=== PATIENT | female | born 1980 | race Caucasian/White ===

== ENCOUNTER 2016-07-29 12:12 | Emergency (ER) | payer OTHER ==
--- NOTE | 2016-07-29 13:42 | RAD ---
INDICATION: Chest pain COMPARISON: Chest x-ray August 18, 2012 TECHNIQUE: An AP portable view obtained at 1106 hours is submitted. FINDINGS: Bones/Soft Tissues: There are no acute bony findings. Cardiomediastinal: The cardiomediastinal silhouette is normal. Lungs: There are no infiltrates. Pleura: There are no pleural effusions. Other: None IMPRESSION: NO ACTIVE DISEASE.
--- NOTE | 2016-07-29 13:43 | RAD ---
HISTORY: Fall, pain at base of thumb COMPARISONS: None VIEWS: 2, Frontal and lateral views of the right hand FINDINGS: BONE DENSITY: Normal. BONES: There is no displaced fracture. JOINTS: There is no arthropathy. ALIGNMENT: There is no dislocation. SOFT TISSUES: Unremarkable. OTHER FINDINGS: None. IMPRESSION: NO ACUTE OSSEOUS INJURY. IF SYMPTOMS PERSIST, RECOMMEND REPEAT IMAGING.
[2016-07-29] MEDS ORDERED: Ketorolac INJ* 30 MG/ML 1 ML VIAL IV PUSH ONE (14:45)
[2016-07-29 14:57] LABS: Hematocrit 43 % (35-47); Hemoglobin 14.2 g/dl (12.0-16.0); Mean Corpuscular HGB Conc 33 g/dl (31-36); Mean Corpuscular Hemoglobin 30 pg (27-31); Mean Corpuscular Volume 90 fL (80-97); Mean Platelet Volume 8 um3 (7.4-10.4); Red Blood Count 4.81 10^6/ul (4.0-5.4); Red Cell Distribution Width 13 % (10.5-15); White Blood Count 12.9 10^3/ul (3.5-10.8)
[2016-07-29 15:37] LABS: BUN/Creatinine Ratio 6.5 (8-20); Calcium 9.3 mg/dL (8.6-10.3); EGFR African American 109.1 (>60); EGFR Non-African American 84.8 (>60); Globulin 2.7 g/dL (2-4); Potassium 3.9 mmol/L (3.5-5.0); Total Bilirubin 0.5 mg/dL (0.2-1.0); Total Protein 6.7 g/dL (6.4-8.9)
--- NOTE | 2016-07-29 15:51 | ED ---
Ronald Meeks Billy, scribed for Jamshid Osorio MD on 07/29/16 at 1231 . Upper Extremity Pain - HPI Summary HPI Summary: Patient is a 35 year-old female coming to the ED presenting with a sudden onset of constant right wrist pain after a fall earlier today at 1045. She states that the fall was caused by intermittent dizzy spells today. Her pain severity at this time is 8/10, and is worse with any touch or movement. It radiates up the right forearm. PMHx is significant for chronic DVT in the LLE, but she states she does not take any bloodthinners at this time. - History of Current Complaint Chief Complaint: EDExtremityUpper Stated Complaint: RIGHT WRIST PAIN Time Seen by Provider: 07/29/16 12:22 Hx Obtained From: Patient Hx Last Menstrual Period: depo shots - no periods Mechanism Of Injury: Fall From A Standing Position Onset/Duration: Started Hours Ago Timing: Constant Severity Initially: Moderate Severity Currently: Moderate Pain Location: Wrist Aggravating Factor(s): Movement, Other - touch Alleviating Factor(s): Nothing Associated Signs & Symptoms: Positive: Other - dizziness - Allergies/Home Medications Allergies/Adverse Reactions: Allergies Allergy/AdvReac Type Severity Reaction Status Date / Time Codeine Allergy Severe Rash Verified 11/10/15 14:18 Penicillins Allergy Severe Difficulty Verified 11/10/15 14:18 Breathing PMH/Surg Hx/FS Hx/Imm Hx Endocrine/Hematology History: Denies: Hx Diabetes, Hx Systemic Lupus Erythematosus, Hx Thyroid Disease Cardiovascular History: Denies: Hx Congestive Heart Failure, Hx Hypertension, Other Cardiovascular Problems/Disorders Respiratory History: Denies: Hx Asthma, Hx Chronic Obstructive Pulmonary Disease (COPD) Comment Only: Other Respiratory Problems/Disorders - sob GI History: Denies: Hx Ulcer, Other GI Disorders History: Denies: Hx Dialysis, Hx Renal Disease Musculoskeletal History: Denies: Hx Rheumatoid Arthritis Neurological History: Reports: Hx Headaches - MIGRAINES - Cancer History Hx Chemotherapy: No - Surgical History Surgery Procedure, Year, and Place: right foot surgery Infectious Disease History: No Infectious Disease History: Denies: Hx Clostridium Difficile, Hx Hepatitis, Hx Human Immunodeficiency Virus (HIV), Hx of Known/Suspected MRSA, Hx Shingles, Hx Tuberculosis, History Other Infectious Disease, Traveled Outside the [place] in Last 30 Days - Family History Known Family History: Positive: Cardiac Disease, Hypertension, Other - Grandmother with pancreatic and breast cancer. - Social History Alcohol Use: None Substance Use Type: Reports: Marijuana Smoking Status (MU): Heavy Every Day Tobacco Smoker Type: Cigarettes Length of Time of Smoking/Using Tobacco: 1/2 ppd up to a full pack Review of Systems Positive: Other - right wrist pain Neurological: Other - dizziness All Other Systems Reviewed And Are Negative: Yes Physical Exam - Summary Physical Exam Summary: VITAL SIGNS: Reviewed. GENERAL: Patient is a well developed and nourished female who is lying comfortable in the stretcher. Patient is not in any acute respiratory distress. HEAD AND FACE: No signs of trauma. No ecchymosis, hematomas or skull depressions. No sinus tenderness. EYES: PERRLA, EOMI x 2, No injected conjunctiva, no nystagmus. EARS: Hearing grossly intact. Ear canals and tympanic membranes are within normal limits. MOUTH: Oropharynx within normal limits. NECK: Supple, trachea is midline, no adenopathy, no JVD, no carotid bruit, no c- spine tenderness, neck with full ROM. CHEST: Symmetric, no tenderness at palpation LUNGS: Clear to auscultation bilaterally. No wheezing or crackles. CVS: Regular rate and rhythm, S1 and S2 present, no murmurs or gallops appreciated. ABDOMEN: Soft, non-tender. No signs of distention. No rebound no guarding, and no masses palpated. Bowel sounds are normal. EXTREMITIES: FROM in all major joints, no edema, no cyanosis or clubbing. Right hand and wrist w/o deformity, ecchymosis, swelling. Decreased ROM secondary to pain. NEURO: Alert and oriented x 3. No acute neurological deficits. Speech is normal and follows commands. SKIN: Dry and warm Triage Information Reviewed: Yes Vital Signs On Initial Exam: Initial Vitals Temp Pulse Resp BP Pulse Ox 99.2 F 89 18 127/81 100 07/29/16 12:14 07/29/16 12:14 07/29/16 12:14 07/29/16 12:14 07/29/16 12:14 Vital Signs Reviewed: Yes Diagnostics - Vital Signs Vital Signs Temp Pulse Resp BP Pulse Ox 07/29/16 12:14 99.2 F 89 18 127/81 100 - Laboratory Result Diagrams: 07/29/16 14:39 07/29/16 14:39 Lab Statement: Any lab studies that have been ordered have been reviewed, and results considered in the medical decision making process. - Radiology CXR Xray Interpretation: No Acute Changes Radiology Interpretation Completed By: Radiologist R Hand XRay Xray Interpretation: No Acute Changes Radiology Interpretation Completed By: Radiologist R Forearm XRay Xray Interpretation: No Acute Changes Radiology Interpretation Completed By: Radiologist - EKG 1302 EKG Interpretation: NSR 71 bpm, no ST elevations. Re-Evaluation - Re-Evaluation First Eval Re-Evaluation Time: 15:50 Change: Improved Course/Dx - Course Assessment/Plan: Patient is a 35 year-old female coming to the ED presenting with a sudden onset of constant right wrist pain after a fall earlier today at 1045. She states that the fall was caused by intermittent dizzy spells today. Her pain severity at this time is 8/10, and is worse with any touch or movement. It radiates up the right forearm. PMHx is significant for chronic DVT in the LLE, but she states she does not take any blood thinners at this time. Patient chooses not to take any blood thinners at this time since she reports she gets severe menstrual cycle. She reports she is waiting to take a Depo Shot at the end of the month and she will think on taking blood thinners. Hand, Wrist and Forearm X ray impression: no acute osseous injury. CXR impression: No acute disease. Blood work wnl. In the Ed course she was given toradol for pain. I discussed all my findings and test results with the patient. Patient understands and agrees. Patient was instructed to return to the emergency room immediately if any of the symptoms return or worsens. Patient understands and agrees. Plan of care was discussed with the patient and patient understands and agrees with the plan of care. All questions were answered at patient satisfaction. There were no further complaints or concerns. Patient was instructed to follow up with primary care physician within 3 to 5 days. Patient is hemodynamically stable. Patient is alert and oriented x 3. No acute neurological deficits - Diagnoses Differential Diagnosis/HQI/PQRI: Positive: Arthritis, Contusion, Fracture ( Closed), Hematoma, Strain, Sprain. Negative: Fracture (Open) Provider Diagnoses: Accidental fall, Wrist pain, acute, Dizziness Discharge - Discharge Plan Condition: Stable Disposition: HOME Patient Education Materials: Wrist Injury (ED), Dizziness (ED) Referrals: [facility] [place] PHYSICIAN REFERRAL [Outside] The documentation as recorded by the Ronald sewell Billy accurately reflects the service I personally performed and the decisions made by me, Jamshid Osorio MD.
[2016-07-29 16:05] VITALS: BP 117/58
--- NOTE | 2016-08-03 22:27 | RAD ---
Indication: Pain post fall. Comparison: None. Technique: AP and lateral views RIGHT radius and ulna. Report: Negative for fracture or malalignment. Unremarkable soft tissue contours. IMPRESSION: Negative exam.
== END 2016-07-29 16:12 | disposition home or self-care (01) ==
LOC: ED 12:12
DX: M25.531 Pain in right wrist (principal); R42 Dizziness and giddiness
CPT/HCPCS: 36415; 71010; 80053; 82553; 83605; 83880; 84484; 85025; 93005; 96374; 99283; J1885

== ENCOUNTER 2016-11-12 11:49 | Emergency (ER) | payer OTHER ==
[2016-11-12 12:15] VITALS: BP 136/81
[2016-11-12] MEDS ORDERED: Ondansetron ODT TAB* 4 MG PO ONE (12:59)
--- NOTE | 2016-11-12 13:11 | UC ---
Abdominal Pain Female HPI - HPI Summary HPI Summary: Pt is worried about her rash and a potential "bacterial infection because I have really bad lymphedema." 1) small red dots on abdomen and back the sometimes itch, sometimes are sore, have "bubbles like chicken pox" x 1 month. Was told at [facility] to get seen for this. 2) vomited 7 times this morning, diarrhea starting 2 days ago approx 3 times per day, watery and orange. 3) LUQ abdominal pain since 2007 that comes 3-12 times per month, feels like a "punch in the gut" and lasts an hour or so. Has apt for endoscopy 11/24/16. 4) has fevers, mostly above 101F, 4 days out of 7, usually in the evening or first thing in the morning. Drenching sweats. 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 - History of Current Complaint Chief Complaint: UCRash Stated Complaint: RASH Time Seen by Provider: 11/12/16 12:18 Hx Obtained From: Patient Hx Last Menstrual Period: depo ?: No Onset/Duration: Lasting Weeks Timing: Constant Severity Initially: Mild Severity Currently: Mild Location: Discrete At: LUQ Radiates: Yes Radiates to: Back Character: Cramping, Dull Aggravating Factor(s): Food, Deep Breaths, Other: - medications Associated Signs and Symptoms: Positive: Fever, Nausea, Vomiting, Diarrhea. Negative: Blood in Stool, Urinary Symptoms, Vaginal Bleeding Allergies/Adverse Reactions: Allergies Allergy/AdvReac Type Severity Reaction Status Date / Time Codeine Allergy Severe Rash Verified 11/12/16 12:15 Penicillins Allergy Severe Difficulty Verified 11/12/16 12:15 Breathing Home Medications: Home Medications Diazepam [Valium] 2 mg PO 11/12/16 [History] PMH/Surg Hx/FS Hx/Imm Hx Previously Healthy: No Endocrine History Of: Denies: Diabetes, Thyroid Disease Cardiovascular History Of: Denies: Cardiac Disorders, Hypertension, Congestive Heart Failure Respiratory History Of: Denies: COPD, Asthma GI/ History Of: Denies: Ulcer, Renal Disease Other History Of: Anticoagulant Therapy - has unknown clotting d/o, lymphedema - Surgical History Surgical History: Yes Surgery Procedure, Year, and Place: right foot surgery - Family History Known Family History: Positive: Cardiac Disease, Hypertension, Other - Grandmother with pancreatic and breast cancer. - Social History Alcohol Use: None Substance Use Type: Marijuana Smoking Status (MU): Heavy Every Day Tobacco Smoker Type: Cigarettes Length of Time of Smoking/Using Tobacco: 1/2 ppd up to a full pack Cessation Counseling: Patient Advised to Stop Review of Systems Constitutional: Fever, Chills, Fatigue Skin: Rash Eyes: Negative ENT: Negative Respiratory: Negative Cardiovascular: Negative Gastrointestinal: Vomiting, Diarrhea Genitourinary: Negative Motor: Negative Neurovascular: Negative Musculoskeletal: Calf Tenderness - chronic LLE Neurological: Negative Psychological: Negative All Other Systems Reviewed And Are Negative: Yes Physical Exam Triage Information Reviewed: Yes Appearance: Well-Appearing, No Pain Distress, Well-Nourished Vital Signs: Initial Vital Signs Temp 99.0 F 11/12/16 12:08 Pulse 98 11/12/16 12:08 Resp 20 11/12/16 12:08 BP 136/81 11/12/16 12:08 Pulse Ox 98 11/12/16 12:08 Vital Signs Reviewed: Yes Eye Exam: Normal Eyes: Positive: Conjunctiva Clear ENT Exam: Normal ENT: Positive: Normal ENT inspection, Hearing grossly normal, Pharynx normal, TMs normal Neck exam: Normal Neck: Positive: Supple, Nontender, No Lymphadenopathy Respiratory Exam: Normal Respiratory: Positive: Chest non-tender, Lungs clear, Normal breath sounds, No respiratory distress, No accessory muscle use Cardiovascular: Positive: No Murmur, Tachycardia - high 90s Abdomen Description: Positive: Soft. Negative: Nontender - mild tenderness LUQ , CVA Tenderness (R), CVA Tenderness (L) Musculoskeletal Exam: Normal Neurological Exam: Normal Neurological: Positive: Alert Psychological Exam: Normal Skin Exam: Other - few scattered tiny red pustules on abd back in various stages of healing Abd Pain Female Course/Dx - Course Course Of Treatment: discussed need for ongoing primary care to make sure her fevers, vomiting, and occ abdominal pain do not have serious underlying cause. Because we are simply urgent care, and because she has a PCP (and her symptoms have been going on so long already), we will not be addressing these concerns today. Vital signs and exam are all normal/reassuring. - Differential Dx/Diagnosis Provider Diagnoses: folliculitis. acute gastroenteritis Discharge - Discharge Plan Condition: Stable Disposition: HOME Prescriptions: Ondansetron TAB* [Zofran 4 MG Tab*] 4 mg PO Q6H PRN #10 tab PRN Reason: Nausea Patient Education Materials: Folliculitis (ED), Gastroenteritis (ED) Additional Instructions: As we discussed, you need to see your primary care provider about your concerns as soon as possible. It will probably take several visits and some different testing to start to rule out serious problems (or find a diagnosis).
== END 2016-11-12 13:43 | disposition home or self-care (01) ==
LOC: UCEAST 11:49
DX: L73.9 Follicular disorder, unspecified (principal); K52.9 Noninfective gastroenteritis and colitis, unspecified; Z88.5 Allergy status to narcotic agent; Z88.0 Allergy status to penicillin; F17.210 Nicotine dependence, cigarettes, uncomplicated
CPT/HCPCS: 99212; A9270-GY; G0463

== ENCOUNTER 2017-06-25 16:29 | Emergency (ER) | payer OTHER ==
[2017-06-25 16:37] VITALS: BP 139/86
[2017-06-25] MEDS ORDERED: Acyclovir* 200 MG CAP PO ONE (17:02)
--- NOTE | 2017-06-25 17:12 | UC ---
Skin Complaint HPI - HPI Summary HPI Summary: right posterior neck pain and rash mild itch painful right occipital lump no f/c about 2 days of symptoms - History of Current Complaint Chief Complaint: UCSkin Time Seen by Provider: 06/25/17 16:40 Stated Complaint: MASS ON HEAD Hx Obtained From: Patient Hx Last Menstrual Period: one year ago Onset/Duration: Gradual Onset, Lasting Days Onset Severity: Mild Current Severity: Moderate Pain Intensity: 4 Pain Scale Used: 0-10 Numeric Character: Swelling, Redness, Raised, Painful Aggravating Factor(s): Touch Alleviating Factor(s): Nothing Associated Signs & Symptoms: Positive: Rash - Allergy/Home Medications Allergies/Adverse Reactions: Allergies Allergy/AdvReac Type Severity Reaction Status Date / Time Codeine Allergy Severe Rash Verified 06/25/17 16:37 Penicillins Allergy Severe Difficulty Verified 06/25/17 16:37 Breathing Adhesive Tape Allergy Rash Verified 06/25/17 16:37 Latex Allergy Rash Verified 06/25/17 16:37 Home Medications: Home Medications Pantoprazole Sodium [Protonix] 40 mg PO DAILY 06/25/17 [History Confirmed ] Review of Systems Constitutional: Negative Skin: Rash Eyes: Negative ENT: Negative Respiratory: Negative Cardiovascular: Negative Gastrointestinal: Negative Genitourinary: Negative Motor: Negative Neurovascular: Negative Musculoskeletal: Myalgia Neurological: Negative Psychological: Negative Is Patient Immunocompromised?: No All Other Systems Reviewed And Are Negative: Yes PMH/Surg Hx/FS Hx/Imm Hx Previously Healthy: Yes Cardiovascular History: Deep Vein Thrombosis Other History Of: Anticoagulant Therapy - has unknown clotting d/o, lymphedema - Surgical History Surgical History: Yes Surgery Procedure, Year, and Place: right foot surgery [address] [facility] [place] - Family History Known Family History: Positive: Cardiac Disease, Hypertension, Other - Grandmother with pancreatic and breast cancer. - Social History Alcohol Use: None Substance Use Type: Marijuana Smoking Status (MU): Heavy Every Day Tobacco Smoker Type: Cigarettes Length of Time of Smoking/Using Tobacco: 1/2 ppd up to a full pack Physical Exam Triage Information Reviewed: Yes Appearance: Well-Appearing, No Pain Distress, Well-Nourished Vital Signs: Initial Vital Signs Temp 97.3 F 06/25/17 16:33 Pulse 106 06/25/17 16:33 Resp 12 06/25/17 16:33 BP 139/86 06/25/17 16:33 Pulse Ox 100 06/25/17 16:33 Vital Signs Reviewed: Yes Eyes: Positive: Conjunctiva Clear ENT: Positive: Hearing grossly normal, TMs normal. Negative: Nasal congestion, Nasal drainage, Trismus, Muffled voice, Hoarse voice Neck: Positive: Supple, Nontender, Other: - right occipital LN Respiratory: Positive: Lungs clear, Normal breath sounds, No respiratory distress Cardiovascular: Positive: RRR, No Murmur Neurological: Positive: Alert Psychological Exam: Normal Skin Exam: Other - vesicles - see image Course/Dx - Diagnoses Provider Diagnoses: shingles Discharge - Discharge Plan Condition: Stable Disposition: HOME Prescriptions: Famciclovir(NF) [Famvir(NF)] 500 mg PO TID #21 tab Patient Education Materials: Marco Antonio (ED) Referrals: Iwona Wakefield MD [Primary Care Provider] - 5 Days Images Head: 1 - scatterred crops of vesicle 2 - swollen/tender LN
== END 2017-06-25 17:07 | disposition home or self-care (01) ==
LOC: UCEAST 16:29
DX: B02.9 Zoster without complications (principal); Z86.718 Personal history of other venous thrombosis and embolism; Z79.01 Long term (current) use of anticoagulants; Z91.040 Latex allergy status; Z88.5 Allergy status to narcotic agent; Z88.0 Allergy status to penicillin; Z91.048 Other nonmedicinal substance allergy status; F17.210 Nicotine dependence, cigarettes, uncomplicated
CPT/HCPCS: 99212; A9270-GY; G0463

== ENCOUNTER 2017-08-31 12:05 | Emergency (ER) | payer OTHER ==
--- NOTE | 2017-08-31 13:39 | RAD ---
HISTORY: Leg pain and edema COMPARISONS: November 19, 2015 TECHNIQUE: Multiple transverse and longitudinal ultrasound images were obtained of the bilateral lower extremities from the level of the common femoral vein inferiorly through to the infrapopliteal veins using grayscale, color Doppler, and spectral Doppler imaging with and without compression and with augmentation. FINDINGS: VEINS: Again noted is chronic nonocclusive thrombus of the left common femoral vein. The similar to the previous examination. The remainder of the venous system of the bilateral lower extremities is compressible throughout its course, with normal flow on color Doppler imaging and normal response to augmentation on spectral Doppler imaging. SOFT TISSUES: Unremarkable. OTHER FINDINGS: None. IMPRESSION: 1. NO RIGHT LOWER EXTREMITY DEEP VEIN THROMBOSIS. 2. AGAIN NOTED IS CHRONIC NONOCCLUSIVE THROMBUS OF THE LEFT COMMON FEMORAL VEIN.
[2017-08-31 13:55] VITALS: BP 137/67
[2017-08-31 14:10] LABS: ABS Basophils 0.1 10^3/ul (0-0.2); ABS Eosinophils 0.1 10^3/ul (0-0.6); ABS Lymphocytes 2.8 10^3/ul (1.0-4.8); ABS Monocytes 0.5 10^3/ul (0-0.8); ABS Neutrophils 7.6 10^3/ul (1.5-7.7); ABS Nucleated RBC 0 10^3/ul; Eosinophil % 0.8 % (0-6); Hematocrit 43 % (35-47); Hemoglobin 14.5 g/dl (12.0-16.0); Lymphocyte % 25.1 % (25-47); Mean Corpuscular HGB Conc 34 g/dl (31-36); Mean Corpuscular Hemoglobin 31 pg (27-31); Mean Corpuscular Volume 92 fL (80-97); Mean Platelet Volume 8 um3 (7.4-10.4); Nucleated Red Blood Cells % 0; Platelet Count 275 10^3/ul (150-450); Red Blood Count 4.69 10^6/ul (4.0-5.4); Red Cell Distribution Width 14 % (10.5-15); White Blood Count 11.1 10^3/ul (3.5-10.8)
[2017-08-31 14:18] LABS: INR 0.98 (0.77-1.02)
[2017-08-31 14:34] LABS: EGFR Non-African American 78.4 (>60)
--- NOTE | 2017-08-31 16:19 | ED ---
Lower Extremity - HPI Summary HPI Summary: 36 female presents to ED with complaints of left lower extremity pain, swelling and cold feeling that has been ongoing and worsening over the past few weeks. 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 Lately her left leg has increased in pain especially with walking. Sometimes increased swelling and foot becomes colder. Denies any changes to skin color. No other complaints. No PMHx other than known DVT. Patient has already been seen by vascular specialist and has another appointment on Monday, also follows with Dr Cottrell. Denies numbness/tingling. Does use cigarettes. Also concerned for right leg DVT although she thinks the pain is just from compensating. - History of Current Complaint Chief Complaint: EDExtremityLower Stated Complaint: LEG PAIN Time Seen by Provider: 08/31/17 15:19 Hx Obtained From: Patient Hx Last Menstrual Period: one year ago Mechanism Of Injury: Other - none Onset/Duration: Weeks Severity Initially: Mild Severity Currently: Moderate Pain Intensity: 8 Pain Scale Used: 0-10 Numeric Timing: Intermittent Location: Is Discrete @ - left leg calf and knee Character Of Pain: Aching Associated Signs And Symptoms: Positive: Swelling, Knee Pain - L Aggravating Factor(s): Ambulation Alleviating Factor(s): Rest Able to Bear Weight: Yes - Allergies/Home Medications Allergies/Adverse Reactions: Allergies Allergy/AdvReac Type Severity Reaction Status Date / Time MS Codeine [Codeine] Allergy Severe Rash Verified 06/25/17 16:37 MS Penicillins [Penicillins] Allergy Severe Difficulty Verified 06/25/17 16:37 Breathing Adhesive Tape Allergy Rash Verified 06/25/17 16:37 MS Latex [Latex] Allergy Rash Verified 06/25/17 16:37 PMH/Surg Hx/FS Hx/Imm Hx Endocrine/Hematology History: Reports: Hx Coagulopothy - and inguinal lymphadenopathy Denies: Hx Diabetes, Hx Systemic Lupus Erythematosus, Hx Thyroid Disease Cardiovascular History: Denies: Hx Congestive Heart Failure, Hx Hypercholesterolemia, Hx Hypertension , Hx Pacemaker/ICD, Other Cardiovascular Problems/Disorders Respiratory History: Denies: Hx Asthma, Hx Chronic Obstructive Pulmonary Disease (COPD) Comment Only: Other Respiratory Problems/Disorders - sob GI History: Denies: Hx Ulcer, Other GI Disorders History: Denies: Hx Dialysis, Hx Renal Disease Musculoskeletal History: Denies: Hx Rheumatoid Arthritis Sensory History: Denies: Hx Hearing Aid Neurological History: Reports: Hx Headaches - MIGRAINES Psychiatric History: Reports: Hx Panic Disorder - Cancer History Hx Chemotherapy: No - Surgical History Surgery Procedure, Year, and Place: right foot surgery 1991 [facility] [place] - Immunization History Immunizations Up to Date: Yes Infectious Disease History: No Infectious Disease History: Denies: Hx Clostridium Difficile, Hx Hepatitis, Hx Human Immunodeficiency Virus (HIV), Hx of Known/Suspected MRSA, Hx Shingles, Hx Tuberculosis, History Other Infectious Disease, Traveled Outside the [place] in Last 30 Days - Family History Known Family History: Positive: Cardiac Disease, Hypertension, Other - Grandmother with pancreatic and breast cancer. - Social History Alcohol Use: None Substance Use Type: Reports: Marijuana Smoking Status (MU): Heavy Every Day Tobacco Smoker Type: Cigarettes Length of Time of Smoking/Using Tobacco: 1/2 ppd up to a full pack Review of Systems Constitutional: Negative Cardiovascular: Negative Respiratory: Negative Positive: Arthralgia, Myalgia, Edema - "Cold" Skin: Negative All Other Systems Reviewed And Are Negative: Yes Physical Exam Triage Information Reviewed: Yes Vital Signs On Initial Exam: Initial Vitals Temp Pulse Resp BP Pulse Ox 98.9 F 87 17 122/76 100 08/31/17 12:11 08/31/17 12:11 08/31/17 12:11 08/31/17 12:11 08/31/17 12:11 Vital Signs Reviewed: Yes Appearance: Positive: Well-Appearing, No Pain Distress, Well-Nourished Skin: Positive: Warm, Skin Color Reflects Adequate Perfusion, Dry, Cold - Left foot and lower leg of LLE colder to touch than right, Soft, Other - no ulcerations or changes to skin color, no current edema on examination. Negative : Numb, Pale, Erythema @ Head/Face: Positive: Normal Head/Face Inspection Eyes: Positive: Conjunctiva Clear ENT: Positive: Hearing grossly normal Neck: Positive: Supple Respiratory/Lung Sounds: Positive: Clear to Auscultation, Breath Sounds Present. Negative: Rales, Rhonchi, Wheezes Cardiovascular: Positive: Normal, RRR, Pulses are Symmetrical in both Upper and Lower Extremities - dimished pulse left lower pedal, however posterior tibilas of Left +2. +1 pedal right +2 posterior tibalis right. also detected with ultrasound, Other - cap refill < 2 second lower legs b/l. Negative: Murmur, Rub Musculoskeletal: Positive: Normal, Strength/ROM Intact, Pain @ - left knee and calf. Negative: Interruption @, Edema Left, Edema Right - not appreciated Neurological: Positive: Normal, Sensory/Motor Intact, Alert, Oriented to Person Place, Time, NV Bundle Intact Distally, Normal Gait Diagnostics - Vital Signs Vital Signs Temp Pulse Resp BP Pulse Ox 08/31/17 13:53 98.2 F 18 18 137/67 100 08/31/17 12:11 98.9 F 87 17 122/76 100 - Laboratory Lab Results: Lab Results 08/31/17 08/31/17 08/31/17 Range/Units 13:55 13:55 13:55 WBC 11.1 H (3.5-10.8) 10^3/ul RBC 4.69 (4.0-5.4) 10^6/ul Hgb 14.5 (12.0-16.0) g/dl Hct 43 (35-47) % MCV 92 (80-97) fL MCH 31 (27-31) pg MCHC 34 (31-36) g/dl RDW 14 (10.5-15) % Plt Count 275 (150-450) 10^3/ul MPV 8 (7.4-10.4) um3 Neut % (Auto) 68.4 (38-83) % Lymph % (Auto) 25.1 (25-47) % [place] % (Auto) 4.8 (1-9) % Eos % (Auto) 0.8 (0-6) % Baso % (Auto) 0.9 (0-2) % Absolute Neuts (auto) 7.6 (1.5-7.7) 10^3/ul Absolute Lymphs (auto) 2.8 (1.0-4.8) 10^3/ul Absolute Monos (auto) 0.5 (0-0.8) 10^3/ul Absolute Eos (auto) 0.1 (0-0.6) 10^3/ul Absolute Basos (auto) 0.1 (0-0.2) 10^3/ul Absolute Nucleated RBC 0 10^3/ul Nucleated RBC % 0 INR (Anticoag Therapy) 0.98 (0.77-1.02) Sodium 137 (133-145) mmol/L Potassium 4.0 (3.5-5.0) mmol/L Chloride 107 (101-111) mmol/L Carbon Dioxide 25 (22-32) mmol/L Anion Gap 5 (2-11) mmol/L BUN 5 L (6-24) mg/dL Creatinine 0.82 (0.51-0.95) mg/dL Est GFR ( Amer) 100.9 (>60) Est GFR (Non-Af Amer) 78.4 (>60) BUN/Creatinine Ratio 6.1 L (8-20) Glucose 93 (70-100) mg/dL Calcium 9.2 (8.6-10.3) mg/dL Total Bilirubin 0.50 (0.2-1.0) mg/dL AST 12 L (13-39) U/L ALT 9 (7-52) U/L Alkaline Phosphatase 66 (34-104) U/L Total Protein 6.9 (6.4-8.9) g/dL Albumin 4.3 (3.2-5.2) g/dL Globulin 2.6 (2-4) g/dL Albumin/Globulin Ratio 1.7 (1-3) Result Diagrams: 08/31/17 13:55 08/31/17 13:55 Lab Statement: Any lab studies that have been ordered have been reviewed, and results considered in the medical decision making process. - Ultrasound No standard instances Ultrasound Interpretation: No Acute Changes - 1. NO RIGHT LOWER EXTREMITY DEEP VEIN THROMBOSIS. 2. AGAIN NOTED IS CHRONIC NONOCCLUSIVE THROMBUS OF THE LEFT COMMON FEMORAL VEIN. Ultrasound Interpretation Completed By: Radiologist Lower Extremity Course/Dx - Course Course Of Treatment: given pain management and muscle relaxer as patient states pain does sometimes begin in lower left back/gluteal region. possible muscle strain/inflammation. US obtained of both lower extremities and negative other than chornic known DVT of left femoral vein and nonocculsive. patient does have lower leg pulses however due to complaints, history and cold, intermittently edematous and painful left LE, recommend close follow up with vasular surgeon, has appointment on Monday, also referred to [facility]. No other concerning signs/symptoms at this time. Aware of worsening signs and symptoms to watch out for. pain management rest, elevation, heating pads/warm baths. Follow up. - Diagnoses Differential Diagnosis/HQI/PQRI: Positive: DVT, Strain, Other - vascular complication, left leg pain, PVD/PAD Provider Diagnoses: Left leg pain, Vascular complication Discharge - Discharge Plan Condition: Stable Disposition: HOME Prescriptions: Methocarbamol TAB* [Robaxin 500 MG TAB*] 500 mg PO TID PRN #20 tab PRN Reason: Spasms traMADol TAB* [Ultram*] 50 mg PO Q12H PRN #10 tab MDD 2 PRN Reason: Pain Patient Education Materials: Peripheral Vascular Disease (ED), Leg Pain (ED) Referrals: Karl Cueva MD [Primary Care Provider] - Bárbara Barrera MD [Medical Doctor] - Additional Instructions: Continue taking pain medication as directed. Increase fluid intake. Be sure to exercise your lower left extremity and foot to help assist blood flow. Heating pads and warm baths for optimal blood flow and increase in circulation. This also may be a complication of nonocclusive chronic DVT. Please return immediately if any new or worsening symptoms as we discussed. Follow up with PCP and vascular surgery, along with your scheduled appointment on Monday.
[2017-08-31] MEDS: Ketorolac INJ* 30 MG/ML 1 ML VIAL IM ONE (16:45)
== END 2017-08-31 17:02 | disposition home or self-care (01) ==
LOC: ED 12:05
DX: M79.662 Pain in left lower leg (principal); I82.512 Chronic embolism and thrombosis of left femoral vein; Z79.01 Long term (current) use of anticoagulants; F17.210 Nicotine dependence, cigarettes, uncomplicated; Z88.5 Allergy status to narcotic agent; Z88.0 Allergy status to penicillin
CPT/HCPCS: 36415; 80053; 85025; 85610; 93970; 96372; 99282; J1885

== ENCOUNTER 2017-10-27 16:44 | Emergency (ER) | payer OTHER ==
[2017-10-27 17:00] VITALS: BP 118/74
[2017-10-27] MEDS ORDERED: Albuterol/Ipratropium NEB.SOL* Albuterol 2.5 MG/Ipratropium 0.5 MG 3 ML INH ONE (17:28)
--- NOTE | 2017-10-27 17:28 | UC ---
Respiratory Complaint HPI - HPI Summary HPI Summary: Patient is beginning day 3 of chest congestion fever body aches headaches arthralgias myalgias sore throat earache nasal drainage. Patient reports her mother has had upper respiratory infection for the past couple weeks. Reports her grandchild has had fevers - History of Current Complaint Chief Complaint: UCGeneralIllness Stated Complaint: CHEST CONGESTION, NAUSEA Time Seen by Provider: 10/27/17 17:14 Hx Obtained From: Patient Hx Last Menstrual Period: one year ago ?: No Onset/Duration: Sudden Onset, Lasting Days - 2, Still Present Timing: Constant Severity Initially: Moderate Severity Currently: Moderate Pain Intensity: 6 Pain Scale Used: 0-10 Numeric Character: Cough: Productive Associated Signs And Symptoms: Positive: Pleuritic Chest Pain, URI, Nasal Congestion, Sinus Discomfort - Allergies/Home Medications Allergies/Adverse Reactions: Allergies Allergy/AdvReac Type Severity Reaction Status Date / Time codeine Allergy Rash Verified 10/27/17 17:01 Latex, Natural Rubber Allergy Rash Verified 10/27/17 17:01 Penicillins Allergy Rash Verified 10/27/17 17:01 PMH/Surg Hx/FS Hx/Imm Hx Previously Healthy: No - patient has a chronic DVT in her left leg with lymphedema - Surgical History Surgical History: Yes Surgery Procedure, Year, and Place: right foot surgery 1991 [facility] [place] - Family History Known Family History: Positive: Cardiac Disease, Hypertension, Other - Grandmother with pancreatic and breast cancer. - Social History Occupation: Disabled Lives: With Family Alcohol Use: None Substance Use Type: Marijuana Smoking Status (MU): Heavy Every Day Tobacco Smoker Type: Cigarettes Length of Time of Smoking/Using Tobacco: 1/2 ppd up to a full pack Cessation Counseling: Counseled 3+Min - 10 Min Review of Systems Constitutional: Fever, Chills, Fatigue Skin: Negative Eyes: Negative ENT: Sore Throat, Nasal Discharge, Sinus Congestion Respiratory: Cough Cardiovascular: Negative Gastrointestinal: Diarrhea Genitourinary: Negative Motor: Negative Neurovascular: Negative Musculoskeletal: Arthralgia, Myalgia Neurological: Headache Psychological: Negative Is Patient Immunocompromised?: No All Other Systems Reviewed And Are Negative: Yes Physical Exam Triage Information Reviewed: Yes Appearance: Well-Nourished, Ill-Appearing, Pain Distress Vital Signs: Initial Vital Signs Temp 99.3 F 10/27/17 16:57 Pulse 92 10/27/17 16:57 Resp 20 10/27/17 16:57 BP 118/74 10/27/17 16:57 Pulse Ox 99 10/27/17 16:57 Vital Signs Reviewed: Yes Eye Exam: Normal Eyes: Positive: Conjunctiva Clear ENT Exam: Normal ENT: Positive: Normal ENT inspection, Hearing grossly normal, Pharynx normal, Nasal congestion, Nasal drainage, TMs normal, Uvula midline. Negative: Tonsillar swelling, Tonsillar exudate, Trismus, Muffled voice, Hoarse voice, Dental tenderness Neck exam: Normal Neck: Positive: Supple, Nontender, No Lymphadenopathy Respiratory Exam: Normal Respiratory: Positive: Chest non-tender, Lungs clear, Normal breath sounds, No respiratory distress, No accessory muscle use Cardiovascular Exam: Normal Cardiovascular: Positive: RRR, No Murmur, Pulses Normal, Brisk Capillary Refill Musculoskeletal Exam: Normal Musculoskeletal: Positive: Strength Intact, ROM Intact, No Edema Neurological Exam: Normal Neurological: Positive: Alert, Muscle Tone Normal Psychological Exam: Normal Skin Exam: Normal UC Diagnostic Evaluation - Laboratory O2 Sat by Pulse Oximetry: 99 Diagnostic Studies Comment: Influenza A positive influenza B negative Respiratory Course/Dx - Course Course Of Treatment: Smoking cessation information provided to patient, albuterol inhaler provided, Tamiflu 75 mg by mouth twice a day 5 days prescribed, follow up with primary care doctor [id number] medications for symptom relief, rest and increase fluids - Differential Dx/Diagnosis Provider Diagnoses: Nicotine dependence, influenza A positive Discharge - Sign-Out/Discharge Documenting (check all that apply): Discharge - Discharge Plan Condition: Stable Disposition: HOME Prescriptions: Albuterol HFA INHALER* [Ventolin HFA Inhaler*] 2 puff INH Q4H PRN #1 mdi PRN Reason: cough and chest tightness Oseltamivir CAP* [Tamiflu CAP*] 75 mg PO BID #10 cap Patient Education Materials: Oseltamivir (By mouth), How to Stop Smoking (ED), Influenza (ED), How to Use a Metered-Dose Inhaler and a Spacer (ED) Referrals: Karl Cueva MD [Primary Care Provider] - If Needed - Billing Disposition and Condition Condition: STABLE Disposition: HOME
== END 2017-10-27 17:56 | disposition home or self-care (01) ==
LOC: UCEAST 16:44
DX: J10.1 Influenza due to other identified influenza virus with other respiratory manifestations (principal); I82.502 Chronic embolism and thrombosis of unspecified deep veins of left lower extremity; I89.0 Lymphedema, not elsewhere classified; Z88.5 Allergy status to narcotic agent; Z88.0 Allergy status to penicillin; Z91.040 Latex allergy status; Z71.6 Tobacco abuse counseling; F17.210 Nicotine dependence, cigarettes, uncomplicated
CPT/HCPCS: 87502; 99212; A9270-GY; G0463

== ENCOUNTER 2018-02-07 14:46 | Emergency (ER) | payer OTHER ==
[2018-02-07 15:12] VITALS: BP 137/93
--- NOTE | 2018-02-07 15:20 | UC ---
Throat Pain/Nasal Marlon HPI - HPI Summary HPI Summary: This is melodie Bolivar documenting for attending Boris Hale MD. This patient is a 37 year old F presenting to [facility] with a chief complaint of sinus congestion since 4 days ago. The patient rates the pain 6/10 in severity. Symptoms aggravated by nothing. Symptoms alleviated by nothing. Patient reports sinus pressure, ear pressure, drooling, ear drainage, sneezing, fever, nausea, rhinorrhea, dental pain. The patient notes that she took Sudafed last night but it has not alleviated her symptoms. - History of Current Complaint Chief Complaint: UCGeneralIllness Stated Complaint: SINUS PAIN Time Seen by Provider: 02/07/18 15:04 Hx Obtained From: Patient Hx Last Menstrual Period: one year ago Onset/Duration: Gradual Onset, Lasting Days - 4 days, Still Present Severity: Moderate Pain Intensity: 6 Pain Scale Used: 0-10 Numeric Cough: None Associated Signs & Symptoms: Positive: Drooling, Sinus Discomfort, Nasal Discharge, Fever, Other - nausea, dental pain, ear pressure, ear drainage - Allergies/Home Medications Allergies/Adverse Reactions: Allergies Allergy/AdvReac Type Severity Reaction Status Date / Time codeine Allergy Rash Verified 02/07/18 15:12 Latex, Natural Rubber Allergy Rash Verified 02/07/18 15:12 Penicillins Allergy Rash Verified 02/07/18 15:12 PMH/Surg Hx/FS Hx/Imm Hx Previously Healthy: Yes Other History Of: Anticoagulant Therapy - has unknown clotting d/o, lymphedema - Surgical History Surgical History: Yes Surgery Procedure, Year, and Place: right foot surgery 1991 [facility] [place] - Family History Known Family History: Positive: Cardiac Disease, Hypertension, Other - Grandmother with pancreatic and breast cancer. - Social History Alcohol Use: None Substance Use Type: Marijuana Substance Use Comment - Amount & Last Used: on /off -- weekly Smoking Status (MU): Light Every Day Tobacco Smoker Type: Cigarettes Length of Time of Smoking/Using Tobacco: 1/2 ppd up to a full pack Review of Systems Constitutional: Fever ENT: Dental Pain, Ear Ache, Nasal Discharge, Sinus Congestion, Sinus Pain/ Tenderness Respiratory: Negative - negative cough Gastrointestinal: Nausea All Other Systems Reviewed And Are Negative: Yes Physical Exam - Summary Physical Exam Summary: General: well-appearing, no pain distress Skin: warm, color reflects adequate perfusion, dry Head: normal Eyes: EOMI, TYRELL ENT: positive rhinorrhea, mild posterior pharynx erythema, Neck: positive anterior cervical lymphadenopathy Respiratory: CTA, breath sounds present Cardiovascular: RRR Abdomen: soft, nontender Bowel: present Musculoskeletal: normal, strength/ROM intact Neurological: sensory/motor intact, A&O x3 Psychological: affect/mood appropriate Triage Information Reviewed: Yes Vital Signs: Initial Vital Signs Temp 98.8 F 02/07/18 15:03 Pulse 90 02/07/18 15:03 Resp 18 02/07/18 15:03 BP 137/93 02/07/18 15:03 Pulse Ox 100 02/07/18 15:03 Vital Signs Reviewed: Yes Throat Pain/Nasal Course/Dx - Course Course Of Treatment: DUE TO SEVERITIY OF SX, WILL RX ABX. CONTINUE SX TREATMENT ALSO. F/U PMD; RECHECK SOONER IF WORSE. - Differential Dx/Diagnosis Provider Diagnoses: SINUSITIS Discharge - Sign-Out/Discharge Documenting (check all that apply): Patient Departure - Discharge Plan Condition: Stable Disposition: HOME Prescriptions: Clindamycin Cap(NF) [Clindamycin Cap 300 mg Cap(NF)] 300 mg PO Q6H #40 cap Patient Education Materials: Sinusitis (ED) Referrals: Karl Cueva MD [Primary Care Provider] - Additional Instructions: FOLLOW UP WITH YOUR DOCTOR. GET RECHECKED FOR ANY WORSENING OF YOUR CONDITION OR QUESTIONS OR CONCERNS. - Billing Disposition and Condition Condition: STABLE Disposition: Home
== END 2018-02-07 15:31 | disposition home or self-care (01) ==
LOC: UCEAST 14:46
DX: J32.9 Chronic sinusitis, unspecified (principal); F17.210 Nicotine dependence, cigarettes, uncomplicated; Z88.5 Allergy status to narcotic agent; Z88.0 Allergy status to penicillin; Z91.040 Latex allergy status
CPT/HCPCS: 99212; G0463

== ENCOUNTER 2018-06-24 12:58 | Emergency (ER) | payer OTHER ==
[2018-06-24] MEDS ORDERED: traMADol TAB* 50 MG PO ONE (13:45)
[2018-06-24] MEDS ORDERED: Ketorolac INJ* 30 MG/ML 1 ML VIAL IM ONE (13:45)
--- NOTE | 2018-06-24 14:27 | ED ---
Lower Extremity - HPI Summary HPI Summary: Pt is 37 y/o F who presents to ED c/o left leg pain for 3 days. The pain began in her calf, migrated down to her ankle, came back up her calf and now resides throughout whole lower leg including behind her knee. She describes the pain as constant and rates the pain as 10/10 in severity. PMHx of DVT. - History of Current Complaint Chief Complaint: EDExtremityLower Stated Complaint: LT LEG PAIN Time Seen by Provider: 06/24/18 13:31 Hx Obtained From: Patient Hx Last Menstrual Period: one year ago Onset of Pain: Days Onset/Duration: Still Present Severity Currently: Severe Pain Intensity: 10 Pain Scale Used: 0-10 Numeric Timing: Constant Location: Is Diffuse Associated Signs And Symptoms: Positive: Knee Pain. Negative: Fever Aggravating Factor(s): Ambulation Alleviating Factor(s): Nothing - Allergies/Home Medications Allergies/Adverse Reactions: Allergies Allergy/AdvReac Type Severity Reaction Status Date / Time codeine Allergy Rash Verified 06/24/18 13:06 Penicillins Allergy Rash Verified 06/24/18 13:06 PMH/Surg Hx/FS Hx/Imm Hx Endocrine/Hematology History: Reports: Hx Anticoagulant Therapy - has unknown clotting d/o, lymphedema Denies: Hx Diabetes, Hx Systemic Lupus Erythematosus, Hx Thyroid Disease Cardiovascular History: Denies: Hx Congestive Heart Failure, Hx Hypercholesterolemia, Hx Hypertension , Hx Pacemaker/ICD, Other Cardiovascular Problems/Disorders Respiratory History: Denies: Hx Asthma, Hx Chronic Obstructive Pulmonary Disease (COPD) Comment Only: Other Respiratory Problems/Disorders - sob GI History: Denies: Hx Ulcer, Other GI Disorders History: Denies: Hx Dialysis, Hx Renal Disease Musculoskeletal History: Denies: Hx Rheumatoid Arthritis Sensory History: Denies: Hx Hearing Aid Neurological History: Reports: Hx Headaches - MIGRAINES Psychiatric History: Reports: Hx Panic Disorder - Cancer History Hx Chemotherapy: No - Surgical History Surgery Procedure, Year, and Place: right foot surgery 1991 [facility] [place] Infectious Disease History: No Infectious Disease History: Denies: Hx Clostridium Difficile, Hx Hepatitis, Hx Human Immunodeficiency Virus (HIV), Hx of Known/Suspected MRSA, Hx Shingles, Hx Tuberculosis, History Other Infectious Disease, Traveled Outside the [place] in Last 30 Days - Family History Known Family History: Positive: Cardiac Disease, Hypertension, Other - Grandmother with pancreatic and breast cancer. - Social History Alcohol Use: None Substance Use Type: Reports: Marijuana Substance Use Comment - Amount & Last Used: on /off -- weekly Smoking Status (MU): Light Every Day Tobacco Smoker Type: Cigarettes Length of Time of Smoking/Using Tobacco: 1/2 ppd up to a full pack Review of Systems Negative: Fever Positive: Other - left leg pain All Other Systems Reviewed And Are Negative: Yes Physical Exam - Summary Physical Exam Summary: Appearance: The patient is well-nourished in no acute distress and in no acute pain. Skin: The skin is warm and dry and skin color reflects adequate perfusion. HEENT: The head is normocephalic and atraumatic. The pupils are equal and reactive. The conjunctivae are clear and without drainage. Nares are patent and without drainage. Mouth reveals moist mucous membranes and the throat is without erythema and exudate. The external ears are intact. The ear canals are patent and without drainage. The tympanic membranes are intact. Neck: The neck is supple with full range of motion and non-tender. There are no carotid bruits. There is no neck vein distension. Respiratory: Chest is non-tender. Lungs are clear to auscultation and breath sounds are symmetrical and equal. Cardiovascular: Heart is regular rate and rhythm. There is no murmur or rub auscultated. There is no peripheral edema and pulses are symmetrical and equal. Abdomen: The abdomen is soft and non-tender. There are normal bowel sounds heard in all four quadrants and there is no organomegaly palpated. Musculoskeletal: There is no back tenderness noted. Left leg is tender to any palpation or range of motion. There is good capillary refill. There is no peripheral edema or calf tenderness elicited. Neurological: Patient is alert and oriented to person, place and time. The patient has symmetrical motor strength in all four extremities. Cranial nerves are grossly intact. Deep tendon reflexes are symmetrical and equal in all four extremities. Psychiatric: The patient has an appropriate affect and does not exhibit any anxiety or depression. Triage Information Reviewed: Yes Vital Signs On Initial Exam: Initial Vitals Temp Pulse Resp BP Pulse Ox 99.4 F 97 16 142/81 100 06/24/18 13:04 06/24/18 13:04 06/24/18 13:04 06/24/18 13:04 06/24/18 13:04 Vital Signs Reviewed: Yes Diagnostics - Vital Signs Vital Signs Temp Pulse Resp BP Pulse Ox 06/24/18 13:04 99.4 F 97 16 142/81 100 - Laboratory Result Diagrams: 06/24/18 16:41 06/24/18 16:41 Lab Statement: Any lab studies that have been ordered have been reviewed, and results considered in the medical decision making process. - Ultrasound No standard instances Ultrasound Interpretation Completed By: Radiologist - Venous Doppler Study IMPRESSION: Chronic nonocclusive thrombosis at the LEFT common femoral vein and confluence with the saphenous vein. Occlusive acute appearing thrombosis at the paired posterior tibial and peroneal calf veins is new compared with the November 08, 2017 exam. ED Physician reviewed this report. Lower Extremity Course/Dx - Course Course Of Treatment: Ms. Cobian presented with many days of increasing pain in her left calf. She denied any chest pain shortness of breath or swelling. 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 She has been on anticoagulants in the past. Ultrasound of her left leg shows a clot at the junction of her posterior tibial and peroneal veins. Preliminary labs were sent and I'm going to anticoagulate her with Eliquis which she has used successfully in the past and prefers. - Diagnoses Provider Diagnoses: DVT (deep venous thrombosis) Discharge - Sign-Out/Discharge Documenting (check all that apply): Patient Departure - DC - Discharge Plan Condition: Stable Disposition: HOME Prescriptions: Apixaban* [Eliquis*] 10 mg PO BID #42 tab Pantoprazole TAB (NF) [Protonix TAB (NF)] 20 mg PO DAILY #10 tab traMADol TAB* [Ultram*] 50 mg PO Q6HR PRN #20 tab MDD 4 PRN Reason: Pain Patient Education Materials: Deep Vein Thrombosis (ED) Referrals: Karl Cueva MD [Primary Care Provider] - Additional Instructions: Follow up with your primry care provider next week. Return to ED for any new or worsening symptoms - Billing Disposition and Condition Condition: STABLE Disposition: Home - Attestation Statements Document Initiated by Scribe: Yes Documenting Scribe: Quinton Barbosa Provider For Whom Scribe is Documenting (Include Credential): Dr. Stanford Cruz MD Scribe Attestation: Quinton Meeks scribed for Dr. Stanford Cruz MD on 06/24/18 at 1954. Scribe Documentation Reviewed: Yes Provider Attestation: The documentation as recorded by the scribe, Quinton Barbosa accurately reflects the service I personally performed and the decisions made by me, Dr. Stanford Cruz MD Status of Scribe Document: Viewed
[2018-06-24 16:42] VITALS: BP 123/67
[2018-06-24 16:52] LABS: ABS Basophils 0.1 10^3/ul (0-0.2); ABS Eosinophils 0.1 10^3/ul (0-0.6); ABS Lymphocytes 2.5 10^3/ul (1.0-4.8); ABS Monocytes 0.8 10^3/ul (0-0.8); ABS Neutrophils 8.2 10^3/ul (1.5-7.7); ABS Nucleated RBC 0 10^3/ul; Eosinophil % 0.7 %; Hematocrit 42 % (35-47); Lymphocyte % 21.4 %; Mean Corpuscular HGB Conc 33 g/dl (31-36); Mean Corpuscular Hemoglobin 32 pg (27-31); Mean Corpuscular Volume 94 fL (80-97); Nucleated Red Blood Cells % 0.1; Platelet Count 249 10^3/ul (150-450); Red Blood Count 4.44 10^6/ul (4.00-5.40); Red Cell Distribution Width 14 % (10.5-15); White Blood Count 11.7 10^3/ul (3.5-10.8)
[2018-06-24 16:58] LABS: INR 0.94 (0.77-1.02)
[2018-06-24] MEDS ORDERED: Apixaban* 5 MG TAB PO SCH (21:00)
== END 2018-06-24 16:41 | disposition home or self-care (01) ==
LOC: ED 12:58
DX: I82.412 Acute embolism and thrombosis of left femoral vein (principal); Z79.01 Long term (current) use of anticoagulants; Z86.718 Personal history of other venous thrombosis and embolism; F17.210 Nicotine dependence, cigarettes, uncomplicated
CPT/HCPCS: 36415; 80053; 84702; 85025; 85610; 85730; 96372; 99282; A9270-GY; J1885

== ENCOUNTER 2019-01-27 22:21 | Emergency (ER) | payer OTHER ==
--- NOTE | 2019-01-28 03:05 | ED ---
Headache - HPI Summary HPI Summary: This patient is a 38 year old F presenting to ED with a chief complaint of migraine ARIAS on the left side since 7 days ago and vomiting for 2 weeks. Patient reports a fever of 101.6F, neck pain radiating down the left side of chest and back, cough. Patient vomits up to 6 times a day. Patient was diagnosed in 2015 and in 2017 with blood clots in her left calf. She previous had clots in her groin in 1999. Patient is attempting to take her Eliquis, but she reports vomiting it back up. The patient rates the pain 7/10 in severity. Symptoms aggravated by nothing. Symptoms alleviated by nothing. Patient denies any history of migraine headache. She also reports an itchy rash on her lower back and shoulder. - History Of Current Complaint Chief Complaint: EDHeadache Stated Complaint: HEADACHE/LEFT SIDE OF BODY FEELS FUNNY PER PT Time Seen by Provider: 01/28/19 02:54 Hx Obtained From: Patient Hx Last Menstrual Period: one year ago Onset/Duration: Started weeks ago - 1 week, Still Present Initially Headache Was: Initial Pain Scale(0-10)= - 7 Currently Pain Is: Current Pain Scale(0-10)= - 7 Timing: Constant Character: Migraine Location of Headache: Other: - Left Radiates to: Neck, left back and left chest Aggravating Factor: Nothing Allevating Factors: Nothing Associated Signs And Symptoms: Vomiting, Fever - Allergies/Home Medications Allergies/Adverse Reactions: Allergies Allergy/AdvReac Type Severity Reaction Status Date / Time codeine Allergy Rash Verified 01/27/19 22:28 Penicillins Allergy Rash Verified 01/27/19 22:28 Home Medications: Home Medications Citalopram TAB* [Celexa TAB*] 10 mg PO DAILY 01/28/19 [History Confirmed ] Folic Acid TAB* [Folvite TAB*] 10 mg PO DAILY 01/28/19 [History Confirmed ] PMH/Surg Hx/FS Hx/Imm Hx Endocrine/Hematology History: Reports: Hx Anticoagulant Therapy - has unknown clotting d/o, lymphedema Denies: Hx Diabetes, Hx Systemic Lupus Erythematosus, Hx Thyroid Disease Cardiovascular History: Denies: Hx Congestive Heart Failure, Hx Hypercholesterolemia, Hx Hypertension , Hx Pacemaker/ICD, Other Cardiovascular Problems/Disorders Respiratory History: Denies: Hx Asthma, Hx Chronic Obstructive Pulmonary Disease (COPD) Comment Only: Other Respiratory Problems/Disorders - sob GI History: Denies: Hx Ulcer, Other GI Disorders History: Denies: Hx Dialysis, Hx Renal Disease Musculoskeletal History: Denies: Hx Rheumatoid Arthritis Sensory History: Denies: Hx Hearing Aid Neurological History: Reports: Hx Headaches - MIGRAINES Psychiatric History: Reports: Hx Panic Disorder - Cancer History Hx Chemotherapy: No - Surgical History Surgery Procedure, Year, and Place: right foot surgery 1991 [facility] – [place] Infectious Disease History: Yes Infectious Disease History: Denies: Hx Clostridium Difficile, Hx Hepatitis, Hx Human Immunodeficiency Virus (HIV), Hx of Known/Suspected MRSA, Hx Shingles, Hx Tuberculosis, History Other Infectious Disease, Traveled Outside the [place] in Last 30 Days - Family History Known Family History: Positive: Cardiac Disease, Hypertension, Other - Grandmother with pancreatic and breast cancer. - Social History Alcohol Use: None Hx Substance Use: Yes Substance Use Type: Reports: Marijuana Substance Use Comment - Amount & Last Used: on /off -- weekly Hx Tobacco Use: Yes Smoking Status (MU): Light Every Day Tobacco Smoker Type: Cigarettes Length of Time of Smoking/Using Tobacco: 1/2 ppd up to a full pack Review of Systems Positive: Cough Positive: Vomiting Musculoskeletal: Other - Neck pain radiating down left side of chest and back Positive: Headache All Other Systems Reviewed And Are Negative: Yes Physical Exam - Summary Physical Exam Summary: VITAL SIGNS: Reviewed. GENERAL: Patient is a well-developed and nourished female who is lying comfortable in the stretcher. Patient is not in any acute respiratory distress. HEAD AND FACE: No signs of trauma. No ecchymosis, hematomas or skull depressions. No sinus tenderness. EYES: PERRLA, EOMI x 2, No injected conjunctiva, no nystagmus. EARS: Hearing grossly intact. Ear canals and tympanic membranes are within normal limits. MOUTH: Oropharynx within normal limits. NECK: Supple, trachea is midline, no adenopathy, no JVD, no carotid bruit, no c- spine tenderness, neck with full ROM CHEST: Symmetric, no tenderness at palpation LUNGS: Clear to auscultation bilaterally. No wheezing or crackles. CVS: Regular rate and rhythm, S1 and S2 present, no murmurs or gallops appreciated. ABDOMEN: Soft, non-tender. No signs of distention. No rebound no guarding, and no masses palpated. Bowel sounds are normal. EXTREMITIES: FROM in all major joints, no edema, no cyanosis or clubbing. NEURO: Alert and oriented x 3. No acute neurological deficits. Speech is normal and follows commands. SKIN: some maculopapular rash on sides Triage Information Reviewed: Yes Vital Signs On Initial Exam: Initial Vitals Temp Pulse Resp BP Pulse Ox 98.7 F 86 16 129/95 100 01/27/19 22:26 01/27/19 22:26 01/27/19 22:26 01/27/19 22:26 01/27/19 22:26 Vital Signs Reviewed: Yes Diagnostics - Vital Signs Vital Signs Temp Pulse Resp BP Pulse Ox 01/27/19 23:55 78 99 01/27/19 23:54 82 130/99 100 01/27/19 22:26 98.7 F 86 16 129/95 100 - Laboratory Result Diagrams: 01/28/19 03:25 01/28/19 03:25 Lab Statement: Any lab studies that have been ordered have been reviewed, and results considered in the medical decision making process. Headache Course/Dx - Course Course Of Treatment: This patient is a 38 year old F presenting to ED with a chief complaint of migraine ARIAS on the left side since 7 days ago and vomiting for 2 weeks. In the ED course, patient received Reglan, morphine, and fluids. Blood work obtained. Patient will be discharged home with dx of ARIAS. Patient understands and agrees with this plan. - Diagnoses Provider Diagnoses: Headache Discharge - Sign-Out/Discharge Documenting (check all that apply): Patient Departure - Discharge Patient Received Moderate/Deep Sedation with Procedure: No - Discharge Plan Condition: Stable Disposition: HOME Patient Education Materials: Acute Headache (ED) Referrals: Arnol Carvalho MD [Primary Care Provider] - 2 Days Additional Instructions: Follow-up with your primary care provider in 2-3 days. RETURN TO THE ER FOR WORSENING OR CHANGING SYMPTOMS. - Billing Disposition and Condition Condition: STABLE Disposition: Home - Attestation Statements Document Initiated by Scribe: Yes Documenting Scribe: Natanael Mera Provider For Whom Scribe is Documenting (Include Credential): Freddie Bolanos MD Scribe Attestation: Natanael Meeks, scribed for Freddie Bolanos MD on 01/28/19 at 1942. Scribe Documentation Reviewed: Yes Provider Attestation: The documentation as recorded by the jamilaibe, Natanael Mera accurately reflects the service I personally performed and the decisions made by me, Freddie Bolanos MD Status of Yessica Document: Viewed
[2019-01-28] MEDS ORDERED: NS 0.9% 1000 ML** 1,000 ML IV ONE (03:12)
[2019-01-28] MEDS ORDERED: Metoclopramide IV* 5 MG/ML 2 ML VIAL IV SLOW PU ONE (03:12)
[2019-01-28] MEDS ORDERED: Morphine 4 MG/ML VIAL (1 ml) 4 MG/ML VIAL IV ONE (03:12)
[2019-01-28 03:31] LABS: ABS Eosinophils 0.1 10^3/ul (0-0.6); ABS Lymphocytes 2.4 10^3/ul (1.0-4.8); ABS Monocytes 0.7 10^3/ul (0-0.8); ABS Neutrophils 4.3 10^3/ul (1.5-7.7); Eosinophil % 1.1 %; Hematocrit 45 % (35-47); Hemoglobin 15.3 g/dL (12.0-16.0); Lymphocyte % 32.4 %; Mean Corpuscular HGB Conc 34 g/dL (31-36); Mean Corpuscular Hemoglobin 31 pg (27-31); Mean Corpuscular Volume 91 fL (80-97); Mean Platelet Volume 8.5 fL (7.4-10.4); Platelet Count 250 10^3/uL (150-450); Red Blood Count 4.95 10^6 /uL (3.70-4.87); Red Cell Distribution Width 13 % (10-15); White Blood Count 7.5 10^3/uL (3.5-10.8)
[2019-01-28 03:39] LABS: Activated Partial Thrombo Time 37.2 seconds (26.0-38.0); INR 1.07 (0.82-1.09)
[2019-01-28 03:49] LABS: ALT 7 U/L (7-52); AST 11 U/L (13-39); Albumin 4.3 g/dL (3.2-5.2); Albumin/Globulin Ratio 1.5 (1-3); Alkaline Phosphatase 93 U/L (34-104); Anion Gap 7 mmol/L (2-11); BUN/Creatinine Ratio 4.3 (8-20); Blood Urea Nitrogen 3 mg/dL (6-24); C Reactive Protein 13.79 mg/L (<8.01); CO2 Carbon Dioxide 26 mmol/L (22-32); Calcium 9.4 mg/dL (8.6-10.3); Chloride 107 mmol/L (101-111); EGFR African American 112.7 (>60); EGFR Non-African American 93.2 (>60); Globulin 2.9 g/dL (2-4); Glucose 105 mg/dL (70-100); Potassium 3.5 mmol/L (3.5-5.0); Sodium 140 mmol/L (135-145); Total Protein 7.2 g/dL (6.4-8.9)
[2019-01-28 03:56] LABS: HCG Pregnancy < 0.60 mIU/mL
[2019-01-28 05:00] VITALS: BP 0/0
== END 2019-01-28 04:59 | disposition home or self-care (01) ==
LOC: ED 22:21
DX: G43.909 Migraine, unspecified, not intractable, without status migrainosus (principal); R11.10 Vomiting, unspecified; R50.9 Fever, unspecified; R21 Rash and other nonspecific skin eruption; Z79.01 Long term (current) use of anticoagulants; Z86.718 Personal history of other venous thrombosis and embolism; Z88.5 Allergy status to narcotic agent; Z88.0 Allergy status to penicillin; F17.210 Nicotine dependence, cigarettes, uncomplicated
CPT/HCPCS: 36415; 80053; 84702; 85025; 85610; 85730; 86140; 96361; 96374; 96375; 99283; J2270; J2765

== ENCOUNTER 2019-02-19 07:19 | Emergency (ER) | payer SELFPAY ==
[2019-02-19 07:36] VITALS: BP 130/70
[2019-02-19 11:05] LABS: ABS Eosinophils 0.1 10^3/ul (0-0.6); ABS Lymphocytes 1.5 10^3/ul (1.0-4.8); ABS Monocytes 0.7 10^3/ul (0-0.8); ABS Neutrophils 6.2 10^3/ul (1.5-7.7); Hematocrit 42 % (35-47); Hemoglobin 14.2 g/dL (12.0-16.0); Lymphocyte % 17.2 %; Mean Corpuscular HGB Conc 34 g/dL (31-36); Mean Corpuscular Hemoglobin 31 pg (27-31); Mean Corpuscular Volume 92 fL (80-97); Mean Platelet Volume 8.4 fL (7.4-10.4); Platelet Count 280 10^3/uL (150-450); Red Blood Count 4.59 10^6 /uL (3.70-4.87); Red Cell Distribution Width 14 % (10-15); White Blood Count 8.5 10^3/uL (3.5-10.8)
[2019-02-19 11:25] LABS: C Reactive Protein 8.51 mg/L (<8.01)
[2019-02-19 11:37] LABS: TSH (Thyroid Stimulating Horm) 2.21 mcIU/mL (0.34-5.60)
[2019-02-19 12:46] LABS: Erythrocyte Sed Rate 11 mm/Hr (0-19)
--- NOTE | 2019-02-19 14:12 | UC ---
UC General HPI - HPI Summary HPI Summary: PATIENT COMPLAINING OF OVER 1 MONTH OF GENERAL MALAISE. HAS HAD A PERSISTENT DULL HEADACHE ASSOCIATED WITH SHOULDER PAIN. STATES THAT HER SHOULDER PAIN AND TENDERNESS JUMPS FROM RIGHT TO LEFT AND THAT THE HEADACHE GOES WITH IT. SHE HAS BEEN SEEN BY HER PCP AND IN THE ER. WAS TREATED FOR HEADACHE IN THE ER AND ADVISED TO GO TO PHYSICAL THERAPY BY HER PCP. SHE STATES SHE IS IN TOO MUCH PAIN TO ATTEMPT PHYSICAL THERAPY. HE IS COMPLAINING OF A BURNING RASH ACROSS HER SHOULDERS. - History of Current Complaint Chief Complaint: UCGeneralIllness Stated Complaint: SORE THROAT HEADACHE RASH EYE ISSUE COUGH Time Seen by Provider: 02/19/19 08:07 Hx Obtained From: Patient Hx Last Menstrual Period: one year ago Onset/Duration: Gradual Onset, Lasting Weeks Timing: Constant Onset Severity: Moderate Current Severity: Moderate Pain Intensity: 7 Associated Signs & Symptoms: Positive: Headache - Allergy/Home Medications Allergies/Adverse Reactions: Allergies Allergy/AdvReac Type Severity Reaction Status Date / Time codeine Allergy Rash Verified 02/19/19 07:36 Penicillins Allergy Rash Verified 02/19/19 07:36 PMH/Surg Hx/FS Hx/Imm Hx - Additional Past Medical History Additional PMH: DVT GI/ History: Gastroesophageal Reflux Other History Of: Anticoagulant Therapy - has unknown clotting d/o, lymphedema - Surgical History Surgical History: Yes Surgery Procedure, Year, and Place: right foot surgery 1991 [facility] – [place] - Family History Known Family History: Positive: Cardiac Disease, Hypertension, Other - Grandmother with pancreatic and breast cancer. - Social History Alcohol Use: None Substance Use Type: Marijuana Substance Use Comment - Amount & Last Used: on /off -- weekly Smoking Status (MU): Light Every Day Tobacco Smoker Type: Cigarettes Length of Time of Smoking/Using Tobacco: 1/2 ppd up to a full pack Review of Systems All Other Systems Reviewed And Are Negative: Yes Constitutional: Positive: Fatigue Skin: Positive: Rash Respiratory: Positive: Negative Cardiovascular: Positive: Negative Gastrointestinal: Positive: Negative Musculoskeletal: Positive: Arthralgia, Myalgia Neurological: Positive: Headache Physical Exam Triage Information Reviewed: Yes Appearance: Well-Appearing, No Pain Distress, Well-Nourished Vital Signs: Initial Vital Signs Temp 98.3 F 02/19/19 07:27 Pulse 75 02/19/19 07:27 Resp 18 02/19/19 07:27 BP 130/70 02/19/19 07:27 Pulse Ox 100 02/19/19 07:27 Vital Signs Reviewed: Yes Eyes: Positive: Conjunctiva Clear ENT: Positive: Hearing grossly normal, Pharynx normal, TMs normal Neck: Positive: Supple, Nontender, No Lymphadenopathy Respiratory Exam: Normal Cardiovascular Exam: Normal Abdomen Description: Positive: Soft Musculoskeletal: Positive: No Edema, ROM Limited @ - SHOULDERS, Edema @ - EXQUISITELY TTP LEFT SHOULDER WITH EVEN LIGHT TOUCH Neurological: Positive: Alert Psychological: Positive: Age Appropriate Behavior Skin: Positive: Rashes - SLIGHT RUDDINESS TO UPPER BACK BUT NO LESIONS Course/Dx - Course Course Of Treatment: PATIENT WITH A CONSTELLATION OF VAGUE SYMPTOMS. PATIENT IS CONCERNED ABOUT LYME DISEASE AND SHINGLES HOWEVER SHE CLINICALLY DOES NOT MEET CRITERIA FOR EITHER OF THESE 2 DIAGNOSES. CONCERN FOR A POSSIBLE RHEUMATOLOGIC CONDITION. WILL CHECK LABS INCLUDING CBC, TSH, ESR, CRP AND MULU. LYME SEROLOGY PER REQUEST. FOLLOW-UP WITH RHEUMATOLOGY AND PCP. TO THE ER WITHOUT FAIL IF SYMPTOMS WORSEN. - Diagnoses Provider Diagnosis: Shoulder arthralgia Discharge - Sign-Out/Discharge Documenting (check all that apply): Patient Departure All imaging exams completed and their final reports reviewed: No Studies - Discharge Plan Condition: Stable Disposition: HOME Patient Education Materials: Arthralgia (ED) Referrals: Ghulam George MD [Primary Care Provider] - If Needed Felice Wagner MD [Medical Doctor] - 1 Week Additional Instructions: UNCLEAR ETIOLOGY OF YOUR SYMPTOMS. YOUR CRP WAS SLIGHTLY ELEVATED IN THE ER . WILL DRAW LAB WORK TODAY INCLUDING REPEAT BLOOD COUNT, REPEAT CRP ( INFLAMMATORY MARKER), SEDIMENTATION RATE (INFLAMMATORY MARKER), THYROID TEST, LYME DISEASE TEST AND AND A SCREEN FOR RHEUMATOLOGIC CONDITION (MULU). FOLLOW-UP WITH YOUR PCP. I ALSO RECOMMEND YOU CALL A PUBLIC HEALTH TEACHER AND SCHEDULE AN APPOINTMENT FOR FURTHER EVALUATION. - Billing Disposition and Condition Condition: STABLE Disposition: Home
--- NOTE | 2019-02-20 10:18 | UC ---
- Progress Note Progress Note: CBC, TSH, and CRP results reviewed. CBC and TSH normal. CRP remains slightly elevated but is improved from the testing performed in the ED on 01/28/2019. The MULU and Lyme testing is still pending. Nursing should notify the patient once all her results have returned. Course/Dx - Diagnoses Provider Diagnoses: Shoulder arthralgia Discharge - Sign-Out/Discharge Documenting (check all that apply): Post-Discharge Follow Up All imaging exams completed and their final reports reviewed: No Studies - Discharge Plan Condition: Stable Disposition: HOME Patient Education Materials: Arthralgia (ED) Referrals: Ghulam George MD [Primary Care Provider] - If Needed Felice Wagner MD [Medical Doctor] - 1 Week Additional Instructions: UNCLEAR ETIOLOGY OF YOUR SYMPTOMS. YOUR CRP WAS SLIGHTLY ELEVATED IN THE ER . WILL DRAW LAB WORK TODAY INCLUDING REPEAT BLOOD COUNT, REPEAT CRP ( INFLAMMATORY MARKER), SEDIMENTATION RATE (INFLAMMATORY MARKER), THYROID TEST, LYME DISEASE TEST AND AND A SCREEN FOR RHEUMATOLOGIC CONDITION (MULU). FOLLOW-UP WITH YOUR PCP. I ALSO RECOMMEND YOU CALL A TELEVISION PRESENTER AND SCHEDULE AN APPOINTMENT FOR FURTHER EVALUATION. - Billing Disposition and Condition Condition: STABLE Disposition: Home
--- NOTE | 2019-02-21 07:10 | UC ---
- Progress Note Progress Note: Chart reviewed MULU came back negative today Still pending Lyme No change in plan Course/Dx - Diagnoses Provider Diagnoses: Shoulder arthralgia Discharge - Sign-Out/Discharge Documenting (check all that apply): Post-Discharge Follow Up All imaging exams completed and their final reports reviewed: No Studies - Discharge Plan Condition: Stable Disposition: HOME Patient Education Materials: Arthralgia (ED) Referrals: Ghulam George MD [Primary Care Provider] - If Needed eFlice Wagner MD [Medical Doctor] - 1 Week Additional Instructions: UNCLEAR ETIOLOGY OF YOUR SYMPTOMS. YOUR CRP WAS SLIGHTLY ELEVATED IN THE ER . WILL DRAW LAB WORK TODAY INCLUDING REPEAT BLOOD COUNT, REPEAT CRP ( INFLAMMATORY MARKER), SEDIMENTATION RATE (INFLAMMATORY MARKER), THYROID TEST, LYME DISEASE TEST AND AND A SCREEN FOR RHEUMATOLOGIC CONDITION (MULU). FOLLOW-UP WITH YOUR PCP. I ALSO RECOMMEND YOU CALL A ENGINE TURNER AND SCHEDULE AN APPOINTMENT FOR FURTHER EVALUATION. - Billing Disposition and Condition Condition: STABLE Disposition: Home
--- NOTE | 2019-02-23 08:32 | UC ---
- Progress Note Progress Note: Lab work from February 19, 2019 Lyme Western blot comes back positive for the IgM which is consistent with early infection of Lyme. Nursing to call patient so that they can start doxycycline 100 mg by mouth twice a day 14 days. Course/Dx - Diagnoses Provider Diagnoses: Shoulder arthralgia Discharge - Sign-Out/Discharge Documenting (check all that apply): Patient Departure All imaging exams completed and their final reports reviewed: No Studies - Discharge Plan Condition: Stable Disposition: HOME Prescriptions: DOXYcycline CAP(*) [DOXYcycline 100MG CAP(*)] 100 mg PO BID #28 cap Patient Education Materials: Arthralgia (ED) Referrals: Ghulam George MD [Primary Care Provider] - If Needed Felice Wagner MD [Medical Doctor] - 1 Week Additional Instructions: UNCLEAR ETIOLOGY OF YOUR SYMPTOMS. YOUR CRP WAS SLIGHTLY ELEVATED IN THE ER . WILL DRAW LAB WORK TODAY INCLUDING REPEAT BLOOD COUNT, REPEAT CRP ( INFLAMMATORY MARKER), SEDIMENTATION RATE (INFLAMMATORY MARKER), THYROID TEST, LYME DISEASE TEST AND AND A SCREEN FOR RHEUMATOLOGIC CONDITION (MULU). FOLLOW-UP WITH YOUR PCP. I ALSO RECOMMEND YOU CALL A REGISTERED PUBLIC SURVEYOR AND SCHEDULE AN APPOINTMENT FOR FURTHER EVALUATION. - Billing Disposition and Condition Condition: STABLE Disposition: Home
== END 2019-02-19 09:17 | disposition home or self-care (01) ==
LOC: UCEAST 07:19
DX: M25.512 Pain in left shoulder (principal); R53.83 Other fatigue; R51 Headache; K21.9 Gastro-esophageal reflux disease without esophagitis; Z88.5 Allergy status to narcotic agent; Z88.0 Allergy status to penicillin; Z79.01 Long term (current) use of anticoagulants
CPT/HCPCS: 36415; 84443; 85025; 85652; 86038; 86140; 86617; 86618; 99211; G0463